=== PATIENT | male | born 1970 | race African-American/Black ===

== ENCOUNTER 2022-01-01 10:37 | Emergency (ER) | payer OTHER ==
[~2022-01-01] VITALS: Ht 182.9 cm; Wt 50.0 kg
[2022-01-01 10:43] VITALS: BP 97/69
[2022-01-01] MEDS ORDERED: IPRATROPIUM BROMIDE (0.02%) 0.5MG/2.5ML NEB HHN STA (10:48)
[2022-01-01] MEDS ORDERED: ALBUTEROL (0.083%) 2.5MG/3ML NEB HHN STA (10:48)
== END 2022-01-01 14:59 | disposition left against medical advice (07) ==
LOC: ER 10:37
DX: R10.13 Epigastric pain (principal); R11.2 Nausea with vomiting, unspecified
CPT/HCPCS: 99281

== ENCOUNTER 2022-02-03 16:05 | Inpatient (IN) | payer OTHER ==
[~2022-02-03] VITALS: Ht 165.1 cm; Wt 45.1 kg
[2022-02-03] MEDS ORDERED: KETOROLAC 30MG/ML VIAL IV STA (18:06)
[2022-02-03] MEDS ORDERED: MORPHINE SULFATE 4 MG/ML CPJ (NOT FOR IM USE) IV STA (18:06)
[2022-02-03] MEDS ORDERED: SODIUM CHLORIDE 0.9% 1000ML BAG (SEPSIS BOLUS) IV ONE (18:15)
[2022-02-03 19:01] LABS: HEMATOCRIT. 27.3 % (42.0-52.0); HEMOGLOBIN. 8.4 g/dL (14.0-18.0); MEAN CORPUSCULAR VOLUME 98.1 fL (80.0-94.0); MEAN PLATELET VOLUME 6.1 fl (7.4-10.4); PLATELET 739 x1000/uL (130-400); RED BLOOD CELL COUNT 2.79 mill/uL (4.7-6.1); RED CELL DISTRIBUTION WIDTH 18.3 % (11.6-14.6)
[2022-02-03 19:07] LABS: CHLORIDE 115 mEq/L (98-107)
[2022-02-03] MEDS ORDERED: SODIUM CHLORIDE 0.9% 1,000 ML IV ONE (19:45)
[2022-02-03] MEDS ORDERED: PIPERACILLIN/TAZOBACTAM 3.375GM/50ML PREMIX IV ONE (19:45)
[2022-02-03] MEDS ORDERED: PIPERACILLIN/TAZ 3.375G PREMIX 50 ML IV NR (19:45)
[2022-02-03] MEDS ORDERED: VANCOMYCIN 1G PREMIX 200 ML IV NR (19:45)
[2022-02-03] MEDS ORDERED: LACTULOSE 20G/30ML UDC PO NR (20:00)
[2022-02-03 20:47] LABS: BETA HYDROXYBUTYRATE 2.5 mMol/L (0.0-0.3)
[2022-02-03] MEDS ORDERED: DEXT 5%/0.9% NACL 1,000 ML IV NR (21:00)
[2022-02-03 21:28] LABS: PLATELET ESTIMATE INCREASED
[2022-02-04 00:50] LABS: BG BASE EXCESS -20.3 mmol/L (-2.0-2.0); BG CARBOXYHEMOGLOBIN 0.1 % (0.5-1.5); BG DEOXYHEMOGLOBIN 2.1 % (0.0-5.0); BG FRACTION INSPIRED OXYGEN 21; BG HCO3 ACT 5.9 mmol/L (22.0-26.0); BG METHEMOGLOBIN 0.3 % (0.0-1.5); BG OXYGEN SATURATION 97.9 % (92.0-98.5); BG OXYHEMOGLOBIN 97.5 % (94.0-97.0); BG PCO2 15.7 mmHg (35.0-45.0); BG PH 7.191 (7.350-7.450); BG PO2 112.5 mmHg (75.0-100.0); BG SAMPLE SITE RIGHT BRACHIAL; BG TOTAL HEMOGLOBIN 8.7 g/dL (12.0-18.0); BG VENT MODE ROOM AIR
[2022-02-04 02:00] VITALS: BP 138/94
[2022-02-04 02:45] VITALS: BP 138/94
[2022-02-04 04:00] VITALS: BP 135/86
[2022-02-04] MEDS ORDERED: ONDA4TAB5 MT (04:01)
[2022-02-04] MEDS ORDERED: OXYC-662 MT (04:01)
[2022-02-04] MEDS ORDERED: HYDR-4009 PO (04:01)
[2022-02-04] MEDS ORDERED: PRED-276 MT (04:01)
[2022-02-04] MEDS ORDERED: ATROV INH (04:01)
[2022-02-04] MEDS ORDERED: AMYL1CAP61 MT (04:01)
[2022-02-04] MEDS ORDERED: BENA20TA77 MT (04:01)
[2022-02-04] MEDS ORDERED: SIMV10TA97 MT (04:01)
[2022-02-04] MEDS ORDERED: CIME800T MT (04:01)
[2022-02-04] MEDS ORDERED: PANT40TA51 MT (04:01)
[2022-02-04] MEDS ORDERED: METO-293 PO (04:01)
[2022-02-04] MEDS ORDERED: FAMO20TA8 PO (04:01)
[2022-02-04] MEDS ORDERED: HYDR-4350 MT (04:01)
[2022-02-04] MEDS ORDERED: OXYC-662 GT (04:01)
[2022-02-04] MEDS ORDERED: HYDROCODONE/ACETAMINOPHEN 10/325MG TABLET PO PRN (07:30)
[2022-02-04] MEDS ORDERED: NALOXONE HCL 0.4MG/ML VIAL IV PRN (07:45)
[2022-02-04] MEDS ORDERED: HYDROMORPHONE HCL/PF 2MG/ML CPJ IV PRN (09:30)
[2022-02-04] MEDS ORDERED: ONDANSETRON HCL 4MG/2ML INJ IV PRN (09:30)
[2022-02-04] MEDS ORDERED: LORAZEPAM 2MG/ML CPJ IV PRN (09:30)
[2022-02-04 11:54] LABS: CHLORIDE 117 mEq/L (98-107)
[2022-02-04 12:00] VITALS: BP 112/78
[2022-02-04] MEDS ORDERED: CLONIDINE 0.1MG TABLET PO PRN (12:00)
[2022-02-04] MEDS ORDERED: IPRATROPIUM/ALBUTEROL 0.5-3(2.5)MG/3ML NEB HHN PRN (12:00)
[2022-02-04] MEDS ORDERED: DOCUSATE SODIUM 100MG CAPSULE PO PRN (12:00)
[2022-02-04] MEDS ORDERED: ACETAMINOPHEN 325MG TABLET PO PRN ×2 (12:00)
[2022-02-04] MEDS ORDERED: LORAZEPAM 0.5MG TABLET PO PRN (12:00)
[2022-02-04] MEDS: SODIUM BICARBONATE 150 MEQ in DEXTROSE 5% WATER 1,000 ML IV SCH (12:46)
[2022-02-04] MEDS ORDERED: SODIUM BICARBONATE 8.4% 1 MEQ/ML 50ML SYR IV NR (13:00)
[2022-02-04] MEDS: PIPERACILLIN/TAZOBACTAM 3.375 G in DEXTROSE 5% WATER 50 ML IV SCH ×2 (14:00→21:16)
[2022-02-04] MEDS ORDERED: VANCOMYCIN 1GM PMX (XELLIA) 200 ML IV NR (14:00)
[2022-02-04] MEDS: GABAPENTIN 300MG CAPSULE PO SCH ×2 (14:08→21:12)
[2022-02-04] MEDS: OXYCODONE HCL 5MG TABLET PO PRN (14:09)
[2022-02-04] MEDS: MORPHINE SULFATE 15MG TABLET SR PO SCH ×2 (14:10→21:12)
[2022-02-04 14:16] LABS: AMYLASE 151 IU/L (25-115)
[2022-02-04 15:24] LABS: BG CARBOXYHEMOGLOBIN 0.6 % (0.5-1.5); BG DEOXYHEMOGLOBIN 54.4 % (0.0-5.0); BG FRACTION INSPIRED OXYGEN 21; BG HCO3 ACT 13.1 mmol/L (22.0-26.0); BG METHEMOGLOBIN 0.3 % (0.0-1.5); BG OXYGEN SATURATION 45.1 % (92.0-98.5); BG OXYHEMOGLOBIN 44.7 % (94.0-97.0); BG PCO2 26.9 mmHg (35.0-45.0); BG PH 7.304 (7.350-7.450); BG PO2 < 30.3 mmHg (75.0-100.0); BG SAMPLE SITE RIGHT RADIAL; BG TOTAL HEMOGLOBIN 9.3 g/dL (12.0-18.0); BG VENT MODE ROOM AIR
[2022-02-04 16:00] VITALS: BP 104/77
[2022-02-04 16:44] LABS: D-DIMER 1.1 mg/L FEU (<0.50); INR 1.2
[2022-02-04 20:00] VITALS: BP 124/84
[2022-02-04] MEDS: HYDROMORPHONE HCL/PF 2MG/ML CPJ IV PRN (21:16)
[2022-02-05] VITALS (9 sets, daily range): BP systolic 95–137; BP diastolic 65–87
[2022-02-05] MEDS: SODIUM BICARBONATE 150 MEQ in DEXTROSE 5% WATER 1,000 ML IV SCH ×2 (01:00→17:33)
[2022-02-05] MEDS: HYDROMORPHONE HCL/PF 2MG/ML CPJ IV PRN ×5 (01:20→20:07)
[2022-02-05] MEDS: VANCOMYCIN 500 MG in DEXT 5% WATER 100 ML IV SCH ×2 (01:20→14:23)
[2022-02-05] MEDS: GABAPENTIN 300MG CAPSULE PO SCH ×3 (06:11→22:15)
[2022-02-05] MEDS: MORPHINE SULFATE 15MG TABLET SR PO SCH ×3 (06:11→22:16)
[2022-02-05 06:20] LABS: BASOPHILS % 0.4 % (0.0-2.0); EOSINOPHILS % 5.5 % (0.0-5.0); HEMATOCRIT. 23.8 % (42.0-52.0); HEMOGLOBIN. 8.1 g/dL (14.0-18.0); LYMPHOCYTES % 10.6 % (20.0-50.0); MEAN CORPUSCULAR HEMOGLOBIN 30.4 pg (28.0-32.0); MEAN PLATELET VOLUME 6.4 fl (7.4-10.4); MONOCYTES % 9.4 % (2.0-8.0); NEUTROPHILS % 74.1 % (40.0-76.0); PLATELET 700 x1000/uL (130-400); RED BLOOD CELL COUNT 2.65 mill/uL (4.7-6.1); RED CELL DISTRIBUTION WIDTH 17.2 % (11.6-14.6)
[2022-02-05] MEDS: PIPERACILLIN/TAZOBACTAM 3.375 G in DEXTROSE 5% WATER 50 ML IV SCH ×3 (06:36→22:36)
[2022-02-05 06:43] LABS: AMYLASE 115 IU/L (25-115); CHLORIDE 113 mEq/L (98-107)
[2022-02-05 07:26] LABS: CARCINO EMBRYONIC ANTIGEN 2.5 ng/ml
[2022-02-05 07:27] LABS: HEPATITIS B SURFACE AB < 3.1 mIU/mL
[2022-02-05] MEDS ORDERED: LIDOCAINE HCL/EPINEPHRINE 1%-EPI 1:100,000 20 ML VIAL ONE (09:19)
[2022-02-05] MEDS ORDERED: THROMBIN (BOVINE) 5000 UNITS/VIAL TOP ONE (09:19)
[2022-02-05] MEDS ORDERED: GENTAMICIN SULF 40MG/ML 2ML VIAL ONE (09:19)
[2022-02-05] MEDS ORDERED: KCL 20MEQ/100ML PREMIX 100 ML IV NR (11:00)
[2022-02-05 11:02] LABS: BG BASE EXCESS -2.4 mmol/L (-2.0-2.0); BG CARBOXYHEMOGLOBIN 0.2 % (0.5-1.5); BG DEOXYHEMOGLOBIN 2.1 % (0.0-5.0); BG FRACTION INSPIRED OXYGEN 28; BG HCO3 ACT 21.8 mmol/L (22.0-26.0); BG OXYGEN SATURATION 97.9 % (92.0-98.5); BG OXYHEMOGLOBIN 97.7 % (94.0-97.0); BG PCO2 34.8 mmHg (35.0-45.0); BG PH 7.415 (7.350-7.450); BG PO2 107.7 mmHg (75.0-100.0); BG SAMPLE SITE RIGHT BRACHIAL; BG TOTAL HEMOGLOBIN 8.3 g/dL (12.0-18.0); BG VENT MODE NASAL CANNULA
[2022-02-05] MEDS: OXYCODONE HCL 5MG TABLET PO PRN ×2 (12:56→23:04)
[2022-02-05] MEDS: IPRATROPIUM/ALBUTEROL 0.5-3(2.5)MG/3ML NEB HHN SCH (20:50)
[2022-02-05] MEDS: BUDESONIDE 0.5MG/2ML NEB HHN SCH (20:50)
[2022-02-06] VITALS (20 sets, daily range): BP systolic 12–173; BP diastolic 11–85
[2022-02-06] MEDS: SODIUM BICARBONATE 150 MEQ in DEXTROSE 5% WATER 1,000 ML IV SCH ×2
[2022-02-06] MEDS: HYDROMORPHONE HCL/PF 2MG/ML CPJ IV PRN ×3 (00:18→07:59)
[2022-02-06] MEDS: IPRATROPIUM/ALBUTEROL 0.5-3(2.5)MG/3ML NEB HHN SCH ×3 (01:08→15:05)
[2022-02-06] MEDS: METHOCARBAMOL 500MG TABLET PO PRN ×2 (02:18→10:38)
[2022-02-06] MEDS: VANCOMYCIN 500 MG in DEXT 5% WATER 100 ML IV SCH (03:18)
[2022-02-06 04:04] LABS: CLARITY URINE CLEAR (CLEAR); COLOR URINE YELLOW (YELLOW); KETONES URINE TRACE (NEGATIVE); LEUKOCYTE ESTERASE URINE NEGATIVE (NEGATIVE); NITRITE URINE NEGATIVE (NEGATIVE); OCCULT BLOOD URINE NEGATIVE (NEGATIVE); PROTEIN URINE 2+ (NEGATIVE); SPECIFIC GRAVITY URINE 1.029 (1.005-1.030); UROBILINOGEN URINE 0.2 E.U./dL (0.2-1.0)
[2022-02-06 06:19] LABS: BASOPHILS % 0.5 % (0.0-2.0); LYMPHOCYTES % 16.7 % (20.0-50.0); MEAN CORPUSCULAR HEMOGLOBIN 30.1 pg (28.0-32.0); MEAN CORPUSCULAR VOLUME 88.3 fL (80.0-94.0); MEAN PLATELET VOLUME 7.1 fl (7.4-10.4); MONOCYTES % 10.2 % (2.0-8.0); NEUTROPHILS % 65.6 % (40.0-76.0); PLATELET 489 x1000/uL (130-400); RED BLOOD CELL COUNT 2.24 mill/uL (4.7-6.1); RED CELL DISTRIBUTION WIDTH 17.1 % (11.6-14.6)
[2022-02-06] MEDS: PIPERACILLIN/TAZOBACTAM 3.375 G in DEXTROSE 5% WATER 50 ML IV SCH (06:21)
[2022-02-06] MEDS: GABAPENTIN 300MG CAPSULE PO SCH (06:21)
[2022-02-06] MEDS: MORPHINE SULFATE 15MG TABLET SR PO SCH (06:21)
[2022-02-06 06:43] LABS: FOLIC ACID (FOLATE) SERUM 5.7 ng/mL (>5.38)
[2022-02-06 06:47] LABS: HEMOGLOBIN. 6.7 g/dL (14.0-18.0)
[2022-02-06 06:48] LABS: HEMATOCRIT. 19.8 % (42.0-52.0)
[2022-02-06 06:58] LABS: CHLORIDE 103 mEq/L (98-107)
[2022-02-06 07:07] LABS: AMYLASE 89 IU/L (25-115); PHOSPHORUS 1.3 mg/dL (2.5-4.9); TOTAL IRON BINDING CAPACITY 114 ug/dL (250-450)
[2022-02-06] MEDS ORDERED: BACITRACIN 15GM TUBE TOP ONE (08:21)
[2022-02-06] MEDS ORDERED: THROMBIN (BOVINE) 5000 UNITS/VIAL TOP ONE (08:21)
[2022-02-06] MEDS ORDERED: GENTAMICIN SULF 40MG/ML 2ML VIAL ONE (08:21)
[2022-02-06] MEDS ORDERED: LIDOCAINE HCL/EPINEPHRINE 1%-EPI 1:100,000 20 ML VIAL ONE (08:21)
[2022-02-06] MEDS: BUDESONIDE 0.5MG/2ML NEB HHN SCH (08:32)
[2022-02-06] MEDS ORDERED: SODIUM BICARBONATE 8.4% 1 MEQ/ML 50ML SYR IV ONE ×2 (08:43→14:41)
[2022-02-06] MEDS ORDERED: CALCIUM CHLORIDE 1GM/10ML SYR IV ONE ×3 (08:43→14:24)
[2022-02-06] MEDS: OXYCODONE HCL 5MG TABLET PO PRN (08:43)
[2022-02-06] MEDS ORDERED: EPINEPHRINE 0.1MG/ML (1:10,000) 10ML SYR ONE ×2 (08:43→14:59)
[2022-02-06] MEDS ORDERED: DEXT 5%/0.45% NACL 1000ML 1,000 ML IV SCH (09:15)
[2022-02-06] MEDS ORDERED: IOHEXOL-350 100 ML BOTTLE ONE (09:16)
[2022-02-06] MEDS ORDERED: MAGNESIUM 2 G PREMIX 50 ML IV NR (10:00)
[2022-02-06 10:26] LABS: BG BASE EXCESS 6.3 mmol/L (-2.0-2.0); BG CARBOXYHEMOGLOBIN 0.8 % (0.5-1.5); BG DEOXYHEMOGLOBIN 3.2 % (0.0-5.0); BG FRACTION INSPIRED OXYGEN 21; BG HCO3 ACT 30.4 mmol/L (22.0-26.0); BG METHEMOGLOBIN 0.2 % (0.0-1.5); BG OXYGEN SATURATION 96.8 % (92.0-98.5); BG OXYHEMOGLOBIN 95.8 % (94.0-97.0); BG PCO2 42.3 mmHg (35.0-45.0); BG PH 7.475 (7.350-7.450); BG PO2 84.6 mmHg (75.0-100.0); BG SAMPLE SITE RIGHT RADIAL; BG TOTAL HEMOGLOBIN 7.5 g/dL (12.0-18.0); BG VENT MODE ROOM AIR
[2022-02-06] MEDS ORDERED: POTASSIUM PHOS,M-BASIC-D-BASIC 30 MMOL in DEXT 5% WATER 500 ML IV NR (11:00)
[2022-02-06] MEDS ORDERED: DOPAMINE HCL 400 MG in DEXT 5% WATER 240 ML IV SCH (12:00)
[2022-02-06] MEDS ORDERED: ROCURONIUM BROMIDE 10MG/ML VIAL 5ML IV ONE ×3 (12:17→16:23)
[2022-02-06] MEDS ORDERED: FENTANYL CITRATE/PF 50MCG/ML 2ML VIAL ONE (13:14)
[2022-02-06] MEDS ORDERED: ALBUMIN HUMAN 25GM/100ML (25%) IV ONE (13:43)
[2022-02-06] MEDS ORDERED: DEXAMETHASONE 4MG/ML 1ML VIAL ONE (13:48)
[2022-02-06] MEDS ORDERED: CEFAZOLIN SODIUM 1000MG/VIAL ONE (13:48)
[2022-02-06] MEDS ORDERED: PROPOFOL 200MG/20ML VIAL IV ONE (13:57)
[2022-02-06] MEDS ORDERED: VANCOMYCIN 500 MG in DEXT 5% WATER 100 ML IV SCH (14:00)
[2022-02-06] MEDS ORDERED: NEOSTIGMINE METHYLSULFATE 1MG/ML 10 ML VIAL ONE (14:11)
[2022-02-06] MEDS ORDERED: GLYCOPYRROLATE 0.2 MG/ML 2ML VIAL ONE ×4 (14:11→15:03)
[2022-02-06] MEDS ORDERED: NICARDIPINE 100 MG in SODIUM CHLORIDE 0.9% 60 ML IV PRN (14:30)
[2022-02-06] MEDS ORDERED: MORPHINE SULFATE 2 MG/ML CPJ (NOT FOR IM USE) IV PRN (14:30)
[2022-02-06 14:37] LABS: BG BASE EXCESS -11.5 mmol/L (-2.0-2.0); BG CARBOXYHEMOGLOBIN 1.2 % (0.5-1.5); BG DEOXYHEMOGLOBIN 0.6 % (0.0-5.0); BG FRACTION INSPIRED OXYGEN 100; BG HCO3 ACT 14.3 mmol/L (22.0-26.0); BG METHEMOGLOBIN 0.4 % (0.0-1.5); BG OXYGEN SATURATION 99.4 % (92.0-98.5); BG OXYHEMOGLOBIN 97.8 % (94.0-97.0); BG PCO2 32.1 mmHg (35.0-45.0); BG PH 7.268 (7.350-7.450); BG TOTAL HEMOGLOBIN 5.3 g/dL (12.0-18.0); BG VENT MODE VENT - AC
[2022-02-06] MEDS ORDERED: EPHEDRINE SULFATE 50MG/ML VIAL ONE (14:59)
[2022-02-06] MEDS ORDERED: EPINEPHRINE 5 MG in SODIUM CHLORIDE 0.9% 250 ML IV PRN (15:00)
[2022-02-06] MEDS ORDERED: PROPOFOL 10MG/ML 100ML 100 ML IV ONE (15:19)
[2022-02-06] MEDS ORDERED: VASOPRESSIN 20 UNIT/ML 1ML ONE (15:46)
[2022-02-06] MEDS ORDERED: HYDROMORPHONE HCL/PF 2MG/ML CPJ ONE (16:26)
[2022-02-06 16:35] LABS: HEMATOCRIT 35.7 % (42.0-52.0); HEMOGLOBIN 12.2 g/dL (14.0-18.0)
[2022-02-06 16:37] LABS: BG BASE EXCESS -1.8 mmol/L (-2.0-2.0); BG CARBOXYHEMOGLOBIN 0.5 % (0.5-1.5); BG DEOXYHEMOGLOBIN 3.4 % (0.0-5.0); BG FRACTION INSPIRED OXYGEN 100; BG HCO3 ACT 27.7 mmol/L (22.0-26.0); BG METHEMOGLOBIN 0.3 % (0.0-1.5); BG OXYGEN SATURATION 96.6 % (92.0-98.5); BG OXYHEMOGLOBIN 95.8 % (94.0-97.0); BG PCO2 70.8 mmHg (35.0-45.0); BG PO2 98.3 mmHg (75.0-100.0); BG SAMPLE SITE ALINE; BG TOTAL HEMOGLOBIN 13.2 g/dL (12.0-18.0); BG VENT MODE SURGERY
[2022-02-06] MEDS ORDERED: PROPOFOL 10MG/ML 100ML 100 ML IV PRN (17:30)
[2022-02-07] MEDS ORDERED: MAGNESIUM OXIDE 400MG TABLET PO SCH (09:00)
== END 2022-02-06 22:13 | DRG 710 ==
LOC: ER 16:05 → 6WST 20:48 → EDBEDREQSVC 21:24 → EDBEDREQTM 21:24 → EDBEDREQ 21:24 → ENRESERV 02-04 00:58 → 5EST 02-05 12:36 → 3WST 02-06 14:21 → MICUSO 02-06 16:20
PROVIDERS: ADMIT Internal Medicine; ATTEND Internal Medicine
PROC: 009U0ZZ Drainage of Spinal Canal, Open Approach (ICD-10-PCS; 2022-02-05)
PROC: 01NB0ZZ Release Lumbar Nerve, Open Approach (ICD-10-PCS; 2022-02-05)
PROC: 0SB20ZZ Excision of Lumbar Vertebral Disc, Open Approach (ICD-10-PCS; 2022-02-05)
PROC: 5A12012 Performance of Cardiac Output, Single, Manual (ICD-10-PCS; principal; 2022-02-06)
PROC: 30233N1 Transfusion of Nonautologous Red Blood Cells into Peripheral Vein, Percutaneous Approach (ICD-10-PCS; 2022-02-06)
DX: A41.9 Sepsis, unspecified organism (principal); G06.2 Extradural and subdural abscess, unspecified; G93.41 Metabolic encephalopathy; E87.2 Acidosis; E44.0 Moderate protein-calorie malnutrition; E72.20 Disorder of urea cycle metabolism, unspecified; C25.9 Malignant neoplasm of pancreas, unspecified; K85.90 Acute pancreatitis without necrosis or infection, unspecified; R64 Cachexia; D53.9 Nutritional anemia, unspecified; D75.839 Thrombocytosis, unspecified; E83.42 Hypomagnesemia; E86.0 Dehydration; E87.6 Hypokalemia; F17.210 Nicotine dependence, cigarettes, uncomplicated; G82.20 Paraplegia, unspecified; I10 Essential (primary) hypertension; J43.9 Emphysema, unspecified; K40.90 Unilateral inguinal hernia, without obstruction or gangrene, not specified as recurrent; K76.0 Fatty (change of) liver, not elsewhere classified; K82.8 Other specified diseases of gallbladder; K86.1 Other chronic pancreatitis; M46.26 Osteomyelitis of vertebra, lumbar region; M48.061 Spinal stenosis, lumbar region without neurogenic claudication; Z20.822 Contact with and (suspected) exposure to COVID-19; M51.9 Unspecified thoracic, thoracolumbar and lumbosacral intervertebral disc disorder; N17.9 Acute kidney failure, unspecified; R65.20 Severe sepsis without septic shock; R16.0 Hepatomegaly, not elsewhere classified; M54.10 Radiculopathy, site unspecified; L98.429 Non-pressure chronic ulcer of back with unspecified severity; R26.89 Other abnormalities of gait and mobility; Z79.2 Long term (current) use of antibiotics; Z82.5 Family history of asthma and other chronic lower respiratory diseases; Z79.891 Long term (current) use of opiate analgesic; Z79.899 Other long term (current) drug therapy; Z68.1 Body mass index [BMI] 19.9 or less, adult; I46.9 Cardiac arrest, cause unspecified; R91.8 Other nonspecific abnormal finding of lung field
CPT/HCPCS: 36415; 36600; 71045; 72100; 72148; 74176; 74178; 74181; 76000; 76705; 80048; 80053; 80076; 80202; 81003; 82010; 82140; 82150; 82310; 82375; 82378; 82607; 82728; 82746; 82805; 82962; 82977; 83540; 83550; 83605; 83735; 83930; 84100; 84132; 84145; 84443; 84484; 85014; 85018; 85025; 85044; 85379; 86301; 86705; 86706; 86803; 86850; 86900; 86920; 87070; 87075; 87077; 87186; 87426; 88311; 93005; 93306; 93312; 94002; 94640; 99291; J0690; J1100; J1170; J1265; J1580; J1885; J2270; J2543; J2704; J2710; J3010; J3370; J3475; J3480; J3490; J7030; J7050; J7060; J7070; J7626; P9016; P9047; Q9967